=== PATIENT | male | born 1965 | race Two or more races ===

== ENCOUNTER 2023-12-01 15:38 | Emergency (ER) | payer SELFPAY ==
[~2023-12-01] VITALS: Ht 160 cm; Wt 96.5 kg
[2023-12-01] MEDS: HYDROcodone-ACET 10/325MG TAB PO ONE (16:33)
[2023-12-01 17:02] VITALS: BP 102/78; PULSE 104; RESP 17; TEMP 98.7; O2SAT 96
[2023-12-01] MEDS ORDERED: BACL10TA PO (17:06)
[2023-12-01] MEDS ORDERED: IBUP-1456 PO (17:06)
== END 2023-12-01 17:24 | disposition home or self-care (01) ==
LOC: ER 15:49
DX: S76.912A Strain of unspecified muscles, fascia and tendons at thigh level, left thigh, initial encounter (principal); X50.1XXA Overexertion from prolonged static or awkward postures, initial encounter; Y93.89 Activity, other specified; Y92.89 Other specified places as the place of occurrence of the external cause; Y99.8 Other external cause status
CPT/HCPCS: 93971